=== PATIENT | male | born 1995 | race Caucasian/White ===

== ENCOUNTER 2019-05-20 16:18 | Emergency (ER) | payer BC, MEDICAID, SELFPAY ==
[2019-05-20 16:19] VITALS: BP 153/78; PULSE 87; RESP 16; TEMP 37.2; O2SAT 98; BMI 29.0
--- NOTE | 2019-05-20 17:13 | EKG12_ITS ---
Test Reason : Blood Pressure : / mmHG Vent. Rate : 083 BPM Atrial Rate : 083 BPM P-R Int : 154 ms QRS Dur : 094 ms QT Int : 366 ms P-R-T Axes : 073 072 036 degrees QTc Int : 430 ms Normal sinus rhythm Normal ECG Confirmed by ASAF MELVIN MD ([id number]), image editor SHANELL AVINA ([id number]) on 05/23/2019 8:31:32 AM Referred By: SHERRIE Confirmed By:ASAF MELVIN MD
--- NOTE | 2019-05-20 17:48 | CT_ITS ---
STUDY: CT BRAIN WITHOUT CONTRAST REASON FOR EXAM: Male, 24 years old. ? SEIZURE, PT WENT STIFF AND FELL TO GROUND RADIATION DOSAGE (If Supplied By Facility): CTDIvol = ( 44.99 ) mGy, DLP = ( 745.49 ) mGycm TECHNIQUE: Transaxial CT imaging of the brain was performed without administration of intravenous contrast material. Individualized dose optimization techniques were used for this CT. COMPARISON: No relevant priors. FINDINGS: Normal soft tissue structures. Normal calvarium. Normal size ventricles and extra-axial spaces for the patient''s age. Normal white matter tracts of the cerebral hemispheres. Normal basal ganglia and thalami. Normal brainstem. Normal cerebellum. There is no intracranial hemorrhage. There are no findings of an acute ischemic infarction. Normal visualized paranasal sinuses. CT/Brain/Head without Contrast IMPRESSION: Normal unenhanced CT scan of the brain. Electronically Signed: Nader Mc MD (Brooks) at 18:24 EST , Service support ,
--- NOTE | 2019-05-20 17:48 | RAD_ITS ---
STUDY: X-RAY CHEST REASON FOR EXAM: Male, 24 years old. PT ARRIVES TO ED WITH CONCERNS WITH SEIZURES. INCIDENT LASTED 15 SEC. NO LOSS OF BOWEL OR BLADDER CONTROL -- POSTERIOR LEFT BACK PAIN RADIATES INTO LEFT SHOULDER AND DOWN ARM TECHNIQUE: PA and lateral views of the chest. COMPARISON: None. FINDINGS: The lungs are clear and expanded. There is no demonstrated pleural abnormality. Normal size heart. Normal mediastinum and pat. Normal visualized pulmonary arteries. Normal visualized aortic arch and descending thoracic aorta. There is mild dextroscoliosis. Normal visualized ribs, clavicles, and shoulders. There is no demonstrated abnormality of the visualized soft tissue structures of the upper abdomen. RAD/Chest PA and Lateral IMPRESSION: Nonacute x-ray examination of the chest. Electronically Signed: Nader Mc MD (Brooks) at 18:32 EST , Service support ,
--- NOTE | 2019-05-20 17:49 | ED.VIS.GEN ---
History of Present Illness Chief Complaint: Seizure Informant: Patient, Family Onset: Today Maximum Severity: Mild Narrative: The patient presents with family after he had an episode where he seemed to become stiff and did not respond to girlfriend for about 10 seconds. The patient has no past history no past illnesses no medications he has been feeling well health is been good he indicates is been under significant stress related to financial issues he had normal health today was able to go about normal daily activities when out for meal with family came back with sitting on the couch talking to girlfriend about financial things other things when she reports he became very stiff for about 10 seconds did not seem to talk to her he had no incontinence no generalized seizure activity, then he by himself got off the couch and sat on the floor complained to her that he did not feel well and he was brought to the hospital He had no incontinence no tongue biting, he has no history of seizure or [employer] disorder cardiovascular disease or general medical conditions of any kind he does not use drugs he occasionally smokes indicates he and the girlfriend are both unemployed Past Medical History - Allergies and Home Meds Allergies/Adverse Reactions: Allergies No Known Allergies Allergy (Verified 05/20/19 16:22) Primary Care Physician: Barbra Romreo [Primary Care Provider] - Past Medical History: None Review of Systems General: Denies: Chills, Fever, Sweats Eyes: Denies: Visual changes - bilaterally, Diplopia ENT: Denies: Rhinorrhea, Sore throat Cardiovascular: Denies: Chest pain, Palpitations Respiratory: Denies: Dyspnea, Cough, Dyspnea on exertion Gastrointestinal: Denies: Abdominal pain, Nausea, Vomiting, Diarrhea, Melena, Hematochezia Genitourinary: Denies: Dysuria, Hematuria, Frequency Musculoskeletal: Denies: Back pain, Extremity Pain Skin: Denies: Rash, Wounds Neurological: Denies: Headache, Weakness, Numbness Physical Exam Vital Signs/Narrative: Vital Signs Temp Pulse Resp BP Pulse Ox 05/20/19 16:19 98.9 F 87 16 153/78 H 98 General: Well nourished, Well developed, No Acute Distress Head: Normocephalic, Atraumatic Eyes: Perrl, EOMI ENT: Moist mucous membranes, No rhinorrhea Neck: Supple, Nontender Cardiovascular: Regular rate, Regular rhythm, No murmurs Respiratory: No distress, CTA bilaterally, Chest nontender Abdomen: Soft, Nontender, Nondistended, Normal bowel sounds Back: Nontender, Normal Inspection Extremities: Nontender, No edema Skin: Normal color, No rash Neurological: Alert, Oriented x3, Cranial nerves II-XII grossly intact, Normal Strength, Normal Sensation Psychological: Normal affect, Normal Mood Diagnostic/Tx/Re-eval - Medical Decision Making His vital signs his general medical exam neurologic exam unremarkable his NIH is 0 his EKG shows a sinus rhythm rate of about 80 no acute injury pattern intervals are normal Long conversation with him and the girlfriend the girlfriend also indicates the patient basically has not slept for months he tosses and turns constantly she does not believe he sleeps more than a few hours a night and that he is under some stress related to social and financial issues, there is no suicidal homicidal ideation there was no definite seizure activity that she witnessed today just a sense of stiffness for 10 seconds Given all the above screening labs CT Patient's ED evaluation with labs head CT chest x-ray are all generally unremarkable, EKG showed a sinus rhythm no acute injury pattern intervals within normal range, patient is understanding of all the above understands exact etiology is unclear at this time he is comfortable as his girlfriend was discharged home, be started on hydroxyzine to help him sleep at bedtime follow-up with outpatient providers and return for change in symptoms Home stable Impression final stiffness episode etiology unclear, history of situational stress ED Disposition - Plan for ED Patient: Diagnosis: Muscle jerking Instructions: WEAKNESS, Unk Cause, Insomnia Prescriptions: Hydroxyzine HCl 25 mg PO QHS PRN PRN #10 tab PRN Reason: Anxiety Prescription Printed Referrals: Barbra Romero [Primary Care Provider] -
[2019-05-20 18:25] LABS: Anion Gap 5 (5-15); BUN 16 mg/dL (7-18); BUN/Creat Ratio 17.3 RATIO (10-20); Calcium,Total 8.9 mg/dL (8.5-10.1); Chloride 104 mmol/L (98-107); Creatinine, Serum 0.93 mg/dL (0.70-1.30); EST Glomerular Filtration Rate 108 mL/min (>60); Est Glom Filt Rate - Afr Amer 131 mL/min (>60); Glucose 101 mg/dL (74-106); Potassium 4.3 mmol/L (3.5-5.1); Sodium Level 139 mmol/L (136-145)
[2019-05-20 18:27] LABS: Absolute Lymphocyte Count 2.39 X10^3/uL (0.83-4.51); Absolute Neutrophil Count 4.1 X10^3/uL (2.0-7.7); Basophil# 0.04 X10^3/uL; Basophil% 0.5 % (0-1); Eosinophil# 0.18 X10^3/uL; Eosinophils% 2.3 % (0-5); Hematocrit 43.4 % (40-54); Hemoglobin 14.8 g/dL (13.0-16.5); Lymphocyte # 2.39 X10^3/ul (4.0); Lymphocyte % 31.1 % (19-41); Mean Corp Hgb Conc 34.1 g/dL (32-36); Mean Corpuscular Hgb 29.9 pg (27.0-32.0); Mean Corpuscular Volume 87.7 fL (80-94); Mean Platelet Vol. 9.8 fl (6.2-12.0); Monocyte# 0.95 X10^3/uL; Monocyte% 12.4 % (0-10); NRBC Flagged by Analyzer 0 % (0-5); Neutrophil # 4.06 X10^3/uL (2.7-7.7); Neutrophil % 52.9 % (47-70); Platelet Count 288 K/mm3 (150-450); RBC Distribution Width CV 12.9 % (11.6-14.6); RBC Distribution Width SD 41.1 fl (35.1-43.9); Red Blood Count 4.95 M/mm3 (4.6-6.2); White Blood Count 7.7 K/mm3 (4.4-11.0)
[2019-05-20 18:42] VITALS: O2SAT 98
[2019-05-20] MEDS: 0.9% Normal Saline 1,000 ML 999 ML IV (18:42)
[2019-05-20 18:55] LABS: Color, Urine Yellow (Yellow); Glucose, Dipstick Normal (Normal); Ketone-Dipstick Negative (Negative); Leukocyte Esterase-Dipstick Negative /ul (Negative); Mucous, Urine 0 SEEN /hpf (<or=2+); Nitrite-Dipstick Negative (Negative); Occult Blood-Urine Negative /ul (Negative); Protein-Dipstick Negative (Negative); Red Blood Cells-Urine 0 SEEN /hpf (0-5); Squamous Epithelial Cells - UA 0 SEEN /hpf (0-5); Urine Bilirubin Dipstick Negative (Negative); Urine Clarity Clear (Clear); Urine Urobilinogen Normal (Normal)
[2019-05-20 19:04] LABS: Bacteria RARE /hpf (None Seen); White Blood Cells 0-5 SEEN /hpf (0-5)
[2019-05-20 19:18] LABS: International Normalized Ratio 1.1; Prothrombin Time (Protime)PT. 14.3 SECONDS (11.7-14.9)
[2019-05-20 19:19] LABS: Partial Thromboplast Time 41.1 Seconds (24.1-36.2)
[2019-05-20 19:54] VITALS: BP 119/67; PULSE 82; RESP 16; O2SAT 98
== END 2019-05-20 20:00 | disposition home or self-care (01) ==
PROVIDERS: Emergency Provider Emergency Medicine; PCP Nurse Practitioner
DX: R29.898 Other symptoms and signs involving the musculoskeletal system (principal); F43.0 Acute stress reaction; Z72.0 Tobacco use
CPT/HCPCS: 70450; 71046; 80048; 81001; 84484; 85025; 85610; 85730; 93005; 96360; 99284; J7030; A4216

== ENCOUNTER → 2019-11-20 17:56 | Outpatient (CLI) | payer BC, MEDICAID, SELFPAY | DX: R19.7 Diarrhea, unspecified (principal); Z20.828 Contact with and (suspected) exposure to other viral communicable diseases | CPT/HCPCS: 87635; 94799; C9803; U0003 ==

== ENCOUNTER 2020-01-01 14:38 | Emergency (ER) | payer OTHER, MEDICAID, SELFPAY ==
[2020-01-01 14:39] VITALS: BP 146/62; PULSE 75; PULSE 80; RESP 17; RESP 18; TEMP 36.3; O2SAT 100; O2SAT 99; BMI 41.1
--- NOTE | 2020-01-01 14:49 | RAD_ITS ---
STUDY: X-RAY - RIGHT FOOT CLINICAL: Male, 24 years old. PT REPORTS INJURY TO RIGHT FOOT LAST EVENING with piece of equipment at work. TECHNIQUE: 3 view(s) of the foot. COMPARISON: None. FINDINGS: Normal talus, calcaneus, and tarsal bones. Normal visualized subtalar, talonavicular, calcaneocuboid, tarsal and tarsometatarsal articulations. Normal metatarsi. Normal metatarsophalangeal joint of the great toe. Normal tibial and fibular sesamoid bones. Normal interphalangeal joint of the great toe. Normal phalanges of the great toe. Normal second through fifth metatarsophalangeal joints. Normal interphalangeal joints and phalanges of the lesser toes. Mild dorsal soft tissue swelling. RAD/Foot min 3 Views IMPRESSION: Mild dorsal soft tissue swelling. Electronically Signed: Mark Omer, at 15:41 EDT , Service support ,
--- NOTE | 2020-01-01 15:01 | ED.DCSUM_ITS ---
History of Present Illness Chief Complaint: Lower Extremity Injury Narrative: Patient presents with right foot crush injury that happened last night. He is complaining of right dorsal tenderness. He has difficulty walking secondary to pain. No ankle pain no knee pain no other injuries. Past Medical History - Allergies and Home Meds Allergies/Adverse Reactions: Allergies No Known Allergies Allergy (Verified 01/01/20 14:38) Primary Care Physician: [facility] Jaz Davis [Primary Care Provider] - Past Medical History: None Smoking Status: Current some day smoker Review of Systems Musculoskeletal: Reports: Extremity Pain Skin: Denies: Abscess, Abrasions Neurological: Denies: Parasthesia, Numbness Hematologic: Denies: Easy bruising, Easy bleeding Physical Exam Vital Signs/Narrative: Vital Signs Temp Pulse Resp BP Pulse Ox 01/01/20 14:39 97.4 F L 80 17 146/62 H 99 General: Well nourished, Well developed Cardiovascular: Regular rate Respiratory: No distress Back: Nontender Extremities: - - There is swelling and bruising over the dorsum of the right foot. There is tenderness over the third fourth and fifth mid metatarsal region. There is no ankle pain no calcaneus tenderness. Skin: Normal color Neurological: Normal Strength, Normal Sensation Diagnostic/Tx/Re-eval Foot x-ray interpreted by emergency doctor shows normal alignment. No fracture is seen. There is soft tissue swelling present otherwise normal x-ray. - Medical Decision Making She has a normal foot x-ray. I will order postop shoe and discharged in stable condition ED Disposition - Plan for ED Patient: Disposition: Home or Assisted Living Diagnosis: Foot contusion Instructions: ED FOOT CONTUSION Prescriptions: Naproxen [Naprosyn] 500 mg PO BID PRN #20 tab Transmission Status: P[facility] to [id number]
[2020-01-01 16:01] VITALS: PULSE 76; RESP 17; O2SAT 98
== END 2020-01-01 16:02 | disposition home or self-care (01) ==
PROVIDERS: Emergency Provider Emergency Medicine
DX: S90.31XA Contusion of right foot, initial encounter (principal); X58.XXXA Exposure to other specified factors, initial encounter; Y93.9 Activity, unspecified; Y92.9 Unspecified place or not applicable; F17.200 Nicotine dependence, unspecified, uncomplicated
CPT/HCPCS: 73630; 99283

== ENCOUNTER 2020-10-20 17:02 | Emergency (ER) | payer BC, MEDICAID, SELFPAY ==
[2020-05-02 13:34] VITALS: BMI 39.8
[2020-10-20 17:03] VITALS: BP 134/81; PULSE 78; RESP 15; TEMP 36.2; O2SAT 97; BMI 38.9
--- NOTE | 2020-10-20 17:41 | ED.VIS.CHEST ---
HPI History of Present Illness Chief Complaint: Chest Other Informant: patient Narrative Narrative: Patient is a 25-year-old previously healthy male who presents to the emergency department for right-sided chest wall pain. He states that this started 2 hours ago. He has never had this before. He does not recall any injury, falls or inciting event. He currently rates as a 7 out of 10. Pushing on the area makes it worse. He denies any associated shortness of breath. No radiation of the pain. No abdominal pain. No nausea/vomiting. He has not been coughing or having fever/chills. He has not tried anything for this. He denies a smoking history. PFSH PFSH Home Medications NK 10/20/20 [History Last Taken Unknown] Allergy/AdvReac Type Severity Reaction Status Date / Time No Known Allergies Allergy Verified 05/02/20 13:36 Social History Smoking Status: Never smoker ROS ROS ED Constitutional Constitutional ED: Denies chills or fever(s) Eyes Eyes: Denies change in vision ENT ENT ED: Denies epistaxis or rhinorrhea Cardiovascular Cardiovascular: Reports chest pain; Denies palpitations Respiratory/Chest Respiratory/Chest: Denies cough, dyspnea or dyspnea on exertion Gastrointestinal Gastrointestinal: Denies abdominal pain, diarrhea, nausea or vomiting Genitourinary Genitourinary ED: Denies dysuria, hematuria or urinary frequency Musculoskeletal Musculoskeletal: Denies back pain or neck pain Integumentary Denies rash Neurologic Neurologic: Denies dizziness, headache(s) or weakness EXAM Physical Exam Const Vital Signs: 10/20/20 17:03 10/20/20 17:10 Temperature 97.1 F L Temperature Source Temporal Pulse Rate 78 Respiratory Rate 15 Respiratory Pattern Normal Blood Pressure 134/81 H Blood Pressure Mean 98 Pulse Ox 97 Oxygen Delivery Method Room Air Positive well nourished and well developed General Appearance ED: well developed and NAD HEENT Reports normocephalic, head/scalp atraumatic and moist mucous membranes Eyes PERRL and EOMs intact bilaterally Neck supple Chest Wall inspection of chest normal Chest Narrative: Tenderness over right lateral ribs. No overlying skin changes. Resp normal respiratory effort and clear to auscultation bilaterally Auscultation: Negative for rales, rhonchi or wheezes Cardio regular rate, regular rhythm and no murmurs GI normal to inspection, nondistended, normoactive bowel sounds and non-tender Palpation: soft; Negative for guarding or rebound tenderness present Back/Spine no CVA tenderness Extremity normal to inspection General Extremety ED: Negative for edema or tenderness General Extremity: Negative for edema Neuro no sensory deficits noted Sensorium / Orientation: alert Motor Exam: strength 5/5 throughout Psych mental status grossly normal Skin no rashes or lesions noted MDM MDM MDM Narrative Medical decision making narrative: Patient presents the ED for nontraumatic right-sided rib pain. This is reproducible on exam. He has point tenderness. Given the fact this is only been going on for 2 hours. He has normal vital signs and is not hypoxic. No shortness of breath. Do not feel significant work-up is required at this time. Did discuss x-ray but without any trauma I have very low concern for rib fracture. Recommend symptomatic treatment. It is most likely rib strain. He is to take anti-inflammatories, Tylenol and use ice over the area. He is to follow-up with his PCP if this does not resolve. If he does any significant worsening chest pain, shortness of breath he needs to return back to the emergency department. This was all reviewed with him. He understands and is agreeable with plan. Discharged home in stable condition. All questions were answered. Discharge Plan Triage Chief Complaint: Chest Other ED Provider: Kvng Evans Dx/Rx/DC Orders Instructions: ED Chest Wall Pain, Costochondritis Prescriptions: No Action NK RF: 0 Primary Care Provider: Jaz Goldman Referrals: [facility] Jaz Davis [Primary Care Provider] - 3-5 Days if not improving Disposition Disposition: Home, Self Care Discharge Date/Time: 10/20/20 17:53
[2020-10-20 17:52] VITALS: RESP 18
== END 2020-10-20 17:53 | disposition home or self-care (01) ==
LOC: ED 17:47
PROVIDERS: Emergency Provider Emergency Medicine
DX: M94.0 Chondrocostal junction syndrome [Tietze] (principal); R07.89 Other chest pain
CPT/HCPCS: 99282

== ENCOUNTER 2023-02-02 14:18 | Emergency (ER) | payer MEDICAID, SELFPAY ==
[2023-02-02 14:18] VITALS: BP 132/70; PULSE 89; RESP 16; TEMP 36.6; O2SAT 98; BMI 36.0
--- NOTE | 2023-02-02 14:55 | EKG12_ITS ---
Test Reason : CP Blood Pressure : / mmHG Vent. Rate : 084 BPM Atrial Rate : 084 BPM P-R Int : 154 ms QRS Dur : 090 ms QT Int : 364 ms P-R-T Axes : 044 060 018 degrees QTc Int : 430 ms Normal sinus rhythm Normal ECG Confirmed by ASAF MELVIN MD ([id number]), dictionary editor SHERICE BOLDEN ([id number]) on 02/04/2023 2:03:38 PM Referred By: KEVIN Confirmed By:ASAF MELVIN MD
--- NOTE | 2023-02-02 15:05 | RAD_ITS ---
INDICATION: chest pain EXAMINATION/TECHNIQUE: X-RAY - portable upright AP chest x-ray COMPARISON: 05/20/2019 FINDINGS: LINES/DEVICES: None. LUNGS: Low lung volumes without consolidation, vascular congestion or pleural effusion. Mild bibasilar subsegmental atelectasis. MEDIASTINUM AND CARDIOVASCULAR STRUCTURES: Cardiac silhouette within normal limits. BONES AND SOFT TISSUES: No acute changes. RAD/Chest 1 View (Portable) IMPRESSION: No radiographic evidence of acute cardiopulmonary disease. Electronically Signed: Ramez Mendosa MD at 15:25 EDT ,
--- NOTE | 2023-02-02 15:16 | EDS_ITS ---
HPI History of Present Illness Chief Complaint: Chest Pain Informant: patient Onset/Context/Timing Onset: Yesterday Activity at onset: gradual Timing: Waxes and wanes Quality: Positive for Sharp Location: Left Chest Narrative Narrative: Patient presents with sharp pain to the left lower chest that started yesterday. He states symptoms started after he drank coffee and Mountain Dew and he thought was just because he drank too much caffeine. He will intermittently feel his heart is racing. He states when he takes a big deep breath and the pain seems to be worse, however pain is not reproducible with palpation over his chest. He does not particularly feel short of breath. He denies any recent change in activity. [facility] Medical History Asthma Home Medications rivaroxaban 15 mg (42)-20 mg (9) tablets in a starter pack (Xarelto DVT-PE Treatment 30-Day Starter) See Rx Instructions PO .COMPLEX #51 tabs 02/02/23 [Rx Last Taken Unknown] Allergy/AdvReac Type Severity Reaction Status Date / Time No Known Allergies Allergy Verified 02/02/23 14:20 Social History Smoking Status: Current every day smoker tobacco type: cigarettes ROS ROS ED Constitutional Constitutional ED: Denies chills or fever(s) Eyes Eyes: Denies change in vision or discharge from eye(s) ENT ENT ED: Denies discharge from eye(s), rhinorrhea or sore throat Cardiovascular Cardiovascular: Reports chest pain and palpitations Respiratory/Chest Respiratory/Chest: Denies cough or dyspnea Gastrointestinal Gastrointestinal: Denies abdominal pain, nausea or vomiting Musculoskeletal Musculoskeletal: Denies back pain or extremity pain Integumentary Denies Abrasions or rash Neurologic Neurologic: Denies headache(s) or weakness Psychiatric Psychiatric: Denies anxiety or depression Allergic/Immunologic Allergic/Immunologic ED: Denies lip swelling or urticaria EXAM Physical Exam Const Vital Signs: 02/02/23 14:18 02/02/23 14:21 02/02/23 14:55 Temperature 97.8 F Temperature Source Temporal Pulse Rate 89 Respiratory Rate 16 Respiratory Effort Normal Non-Labored Blood Pressure 132/70 H Blood Pressure Mean 90 Pulse Ox 98 Oxygen Delivery Method Room Air Room Air 02/02/23 15:18 Temperature Temperature Source Pulse Rate 87 Respiratory Rate 15 Respiratory Effort Blood Pressure 131/65 H Blood Pressure Mean 87 Pulse Ox 98 Oxygen Delivery Method Room Air Positive well nourished and well developed General Appearance ED: well developed HEENT Reports normocephalic and head/scalp atraumatic Eyes PERRL and EOMs intact bilaterally Neck supple Chest Wall inspection of chest normal and palpation of chest normal Resp normal respiratory effort and clear to auscultation bilaterally Cardio regular rate and regular rhythm GI soft to palpation GI Narrative: Mild epigastric tenderness palpation. No guarding or rebound. Extremity normal to inspection Neuro oriented x3 and no sensory deficits noted Sensorium / Orientation: alert Motor Exam: strength 5/5 throughout Psych mental status grossly normal Skin no rashes or lesions noted MDM MDM MDM Narrative Medical decision making narrative: Prehospital EKG was reviewed and revealed no evidence of acute ischemia. Patient was given aspirin and 1 nitro with EMS. This did not change his pain. Patient placed on vehicle monitor technician. EKG obtained to evaluate for cardiac arrhythmia/ischemia. Chest x-ray obtained to evaluate for acute lung pathology, cardiac size, or mediastinal abnormality. Labwork obtained to evaluate for leukocytosis, anemia, and electrolyte derangement. Patient given Toradol and Protonix for pain. History & Record Review Discussion w/independent historian: Patient Additional record(s) reviewed:: Prior ED visit Lab Data Attestation: I reviewed the patient's lab results. Labs: Laboratory Results - last 24 hr 02/02/23 15:21 WBC 12.4 H RBC 4.76 Hgb 14.4 Hct 43.1 MCV 90.5 MCH 30.3 MCHC 33.4 RDW Std Deviation 41.8 RDW Coeff of [place]stance 12.7 Plt Count 267 MPV 9.5 Immature Gran % (Auto) 0.400 Neut % (Auto) 69.2 Lymph % (Auto) 15.1 L [place] % (Auto) 10.2 H Eos % (Auto) 4.4 Baso % (Auto) 0.7 Absolute Neuts (auto) 8.6 H Absolute Lymphs (auto) 1.87 Nucleated RBC % 0 D-Dimer Quant (PE/DVT) 1.27 H* Sodium 139 Potassium 4.0 Chloride 108 H Carbon Dioxide 27.0 Anion Gap 4 L BUN 15 Creatinine 0.98 Estim Creat Clear Calc 117.94 Est GFR (MDRD) Af Amer 119 Est GFR (MDRD) Non-Af 98 BUN/Creatinine Ratio 15.3 Glucose 99 Calcium 8.8 Troponin I High Sens 3 Radiography Chest X-Ray - ED: 1 View, Read by ED Physician, Normal, Heart, Lungs and Mediastinum Diagnostic Testing: Clinical Impression(s) from Imaging Studies Chest X-Ray 02/02/23 15:05 IMPRESSION: No radiographic evidence of acute cardiopulmonary disease. Electronically Signed: Ramez Mendosa MD at 15:25 EDT , Chest CTA 02/02/23 16:15 IMPRESSION: Pulmonary emboli in segmental and subsegmental branches to the right upper and bilateral lower lobes. Left lower lobe infiltrate, infectious versus developing pulmonary infarction. Electronically Signed: Ramez Mendosa MD at 17:09 EDT , EKG Initial EKG: Attestation: I personally reviewed and interpreted this EKG as follows: Interpretation: Sinus Rhythm (Sinus at 84 with no acute ischemia.) Treatment and Re-Evaluation :: CBC was white count of 12.4 with normal differential. Hemoglobin normal at 14.4. D-dimer elevated at 1.27. Troponin is normal at 3. Chemistry studies unremarkable with normal renal function. Portable chest x-ray per my interpretation reveals no acute findings. Radiology interpretation is reviewed and agrees. EKG is sinus at 84 with no acute ischemia. Given the patient's elevated D-dimer he was sent for a CTA of the chest. Patient has evidence of bilateral segmental and subsegmental emboli in the right upper and bilateral lower lobes. There is a left lower lobe infiltrate which may be infectious versus developing pulmonary infarction. This is the area of the patient's pain. He does not have any infectious symptoms. I do believe this is more likely to be infarct. Patient's vital signs have been stable. His O2 sat has remained over 97%. I will discharge him with a prescription for Xarelto and give him first dose here. He will [facility]-up with [facility] for close follow-up. Discharge Plan Triage Chief Complaint: Chest Pain ED Provider: Polly Stewart Dx/Rx/DC Orders Clinical Impression: Pulmonary emboli Instructions: Pulmonary Embolism Prescriptions: New Xarelto DVT-PE Treat 30d Start 15 mg (42)- 20 mg (9) tablets,dose pack See Rx Instructions .ROUTE .COMPLEX Qty: 51 0RF Rx Instructions: take one-15 mg tablet twice daily for 21 days, then one-20 mg tablet once daily; must take with meal/food Primary Care Provider: [facility] Jaz Davis Referrals: [facility] [Primary Care Provider] - 1 Week Disposition Disposition: Home, Self Care
[2023-02-02 15:18] VITALS: BP 131/65; PULSE 87; RESP 15; O2SAT 98
[2023-02-02] MEDS: Pantoprazole Sodium 40 MG in 0.9% Normal Saline (100mL MB+) 100 ML 330 MG IV (15:19)
[2023-02-02] MEDS: Ketorolac 30 MG/ML Syringe IV (15:20)
[2023-02-02 15:27] LABS: Absolute Lymphocyte Count 1.87 X10^3/uL (0.83-4.51); Absolute Neutrophil Count 8.6 X10^3/uL (2.0-7.7); Basophil# 0.09 X10^3/uL; Basophil% 0.7 % (0-1); Eosinophil# 0.55 X10^3/uL; Eosinophils% 4.4 % (0-5); Hematocrit 43.1 % (40-54); Hemoglobin 14.4 g/dL (13.0-16.5); Lymphocyte # 1.87 X10^3/ul (0.83-4.51); Lymphocyte % 15.1 % (19-41); Mean Corp Hgb Conc 33.4 g/dL (32-36); Mean Corpuscular Hgb 30.3 pg (27.0-32.0); Mean Corpuscular Volume 90.5 fL (80-94); Mean Platelet Vol. 9.5 fl (6.2-12.0); Monocyte# 1.26 X10^3/uL; Monocyte% 10.2 % (0-10); NRBC Flagged by Analyzer 0 % (0-5); Neutrophil # 8.57 X10^3/uL (2.7-7.7); Neutrophil % 69.2 % (47-70); Platelet Count 267 K/mm3 (150-450); RBC Distribution Width CV 12.7 % (11.6-14.6); RBC Distribution Width SD 41.8 fl (35.1-43.9); Red Blood Count 4.76 M/mm3 (4.6-6.2); White Blood Count 12.4 K/mm3 (4.4-11.0)
[2023-02-02 16:00] LABS: D-Dimer Quantitative (DVT/PE) 1.27 FEU/ug/m (0.27-0.49)
[2023-02-02 16:06] LABS: Anion Gap 4 (5-15); BUN 15 mg/dL (7-18); BUN/Creat Ratio 15.3 RATIO (10-20); Calcium,Total 8.8 mg/dL (8.5-10.1); Chloride 108 mmol/L (98-107); Creatinine, Serum 0.98 mg/dL (0.70-1.30); EST Glomerular Filtration Rate 98 mL/min (>60); Est Glom Filt Rate - Afr Amer 119 mL/min (>60); Estimated Creatinine Clearance 117.94 ml/min; Glucose 99 mg/dL (74-106); Sodium Level 139 mmol/L (136-145); Troponin-I HS 3 pg/mL (3.0-78.0)
--- NOTE | 2023-02-02 16:15 | CT_ITS ---
We are attempting to reach an attending provider to discuss findings. An addendum with communication details will be sent when the communication is complete. STUDY: CTA CHEST REASON FOR EXAM: Male, 28 years old. Chest pain, elevated d-dimer RADIATION DOSAGE (If Supplied By Facility): CTDIvol = ( 14.81 ) mGy, DLP = ( 1118.11 ) mGycm TECHNIQUE: The examination was performed with the intravenous administration of 100mL Isovue-370. Post-processing of the angiographic images was performed, with multiplanar reformation and 3D reconstruction. Individualized dose optimization techniques were used for this CT. COMPARISON: None. FINDINGS: Filling defects and distal segmental and subsegmental branches to the bilateral lower lobes, right upper lobe. Normal thoracic aorta and visualized great vessels. There is no demonstrated aortic dissection. Normal heart and pericardium. Normal mediastinum. Normal hilar regions. Patchy left lower lobe infiltrate. Small left pleural effusion. Normal chest wall structures. Normal osseous structures. No acute findings in the upper abdomen. CT/CTA Chest W/WO Contrast IMPRESSION: Pulmonary emboli in segmental and subsegmental branches to the right upper and bilateral lower lobes. Left lower lobe infiltrate, infectious versus developing pulmonary infarction. Electronically Signed: Ramez Mendosa MD at 17:09 EDT ,
[2023-02-02 17:00] VITALS: BP 112/85; PULSE 81; RESP 14; O2SAT 98
[2023-02-02] MEDS: Rivaroxaban 15 MG Tablet PO (17:29)
[2023-02-02 17:32] VITALS: BP 121/78; PULSE 81; RESP 16; O2SAT 98
[2023-02-02 17:33] VITALS: BP 112/85; PULSE 81; RESP 14; O2SAT 98
== END 2023-02-02 17:36 | disposition home or self-care (01) ==
PROVIDERS: Emergency Provider Emergency Medicine; Visit Provider Emergency Medicine
DX: I26.99 Other pulmonary embolism without acute cor pulmonale (principal); I26.94 Multiple subsegmental thrombotic pulmonary emboli without acute cor pulmonale; F17.210 Nicotine dependence, cigarettes, uncomplicated
CPT/HCPCS: 71045; 71275; 80048; 84484; 85025; 85379; 93005; 96365; 96375; 99285; J7030; Q9967; A4216

== ENCOUNTER 2023-02-03 08:32 | Emergency (ER) | payer MEDICAID, SELFPAY ==
[2023-02-03 08:33] VITALS: BP 139/92; PULSE 108; RESP 28; TEMP 36.1; O2SAT 97; BMI 33.3
--- NOTE | 2023-02-03 08:51 | EKG12_ITS ---
Test Reason : Blood Pressure : / mmHG Vent. Rate : 096 BPM Atrial Rate : 096 BPM P-R Int : 150 ms QRS Dur : 090 ms QT Int : 348 ms P-R-T Axes : 033 064 035 degrees QTc Int : 439 ms Normal sinus rhythm Normal ECG Confirmed by GARIMA DELUCA, NIDA ([id number]), photography editor SHERICE BOLDEN ([id number]) on 02/05/2023 7:05:42 AM Referred By: Confirmed By:ELIZABET PAINTING MD
--- NOTE | 2023-02-03 08:53 | ED.VIS.CHEST ---
HPI History of Present Illness Chief Complaint: Chest Pain Informant: patient Narrative Narrative: Presents with left and chest pain. Patient was seen yesterday for this. He was diagnosed with pulmonary embolus. He was started on Xarelto which he is taking. He states if he does breeze normally and does normal activity his chest does not hurt really. But if he gets upset or angry or is breathing real deep he is getting pain in the left chest that seems a little bit more than yesterday. He thought the pain might go away on the medicine. He is not coughing. He is not actually short of breath. No hemoptysis. No signs of bleeding anywhere else. He has not been lightheaded or syncopal. He was on no medicines prior to this diagnosis. He denies any recent casting, splinting, being bedbound, hormone therapy travel surgery immobilization personal or family history of DVT or PE. [facility] Medical History Asthma Home Medications rivaroxaban 15 mg (42)-20 mg (9) tablets in a starter pack (Xarelto DVT-PE Treatment 30-Day Starter) See Rx Instructions PO .COMPLEX #51 tabs 02/02/23 [Rx Last Taken Unknown] oxycodone-acetaminophen 5 mg-325 mg tablet 1 tab PO Q6H PRN PRN Pain 3 days #12 TABLETS 02/03/23 [Rx Last Taken Unknown] Allergy/AdvReac Type Severity Reaction Status Date / Time No Known Allergies Allergy Verified 02/03/23 08:37 Social History Smoking Status: Current some day smoker tobacco type: cigarettes ROS ROS ED ROS Narrative A complete review of systems was performed and is negative except as documented in the history of present illness. Some specific details below. Constitutional: No recent fevers or chills. EYE: No discharge, visual complaints, or pain. ENT: No difficulty swallowing. No swelling. No pain. No reflux symptoms. No GERD. CV: See history of present illness. Respiratory: See history of present illness. GI: No abdominal pain. No nausea vomiting diarrhea. No blood in stool. : No hematuria. Musculoskeletal: No recent trauma. No pains. No swelling. Skin: No rash. Nondiaphoretic. Neuro: No weakness or numbness. Endocrine: No polyuria or polydipsia. EXAM Physical Exam Narrative Exam Narrative: CONSTITUTIONAL: Patient is nontoxic in appearance. The patient looks comfortable. Work of breathing looks normal. He carries on a normal conversation with me. HEENT: No notable trauma. Mucous membranes moist. No indication of pain with swallowing. Some of his symptoms did seem to be more after he drank some caffeine but he is not having GERD symptoms now. EYES: No conjunctival injection. No proptosis. NECK:No JVD. No stridor. CARDIOVASCULAR: Regular rate currently at about 90. Regular rhythm. No notable murmur. No JVD. RESPIRATORY: No respiratory distress. Breathing is unlabored. No wheezes. No rhonchi. No rales. He does have some pain in the left anterior chest wall when he takes a very deep breath. But he is not really tender there. No bruising. No subcu air. GASTROINTESTINAL: Not distended. Bowel sounds are normal. No tenderness. GENITOURINARY: No tenderness over the bladder. No CVA tenderness. MUSCULOSKELETAL: Atraumatic. No peripheral edema. No cord. No tenderness along the deep venous system. No asymmetry. No distended veins. NEUROLOGICAL: Patient is alert and appropriate. No focal deficit noted. SKIN: No noted rashes. No diaphoresis. PSYCHIATRIC: Patient is calm. Mood is appropriate. Const Vital Signs: 02/03/23 08:33 02/03/23 08:51 02/03/23 10:32 Temperature 97.0 F L Temperature Source Temporal Pulse Rate 108 H Respiratory Rate 28 H Blood Pressure 139/92 H 123/81 H Blood Pressure Mean 107 95 Pulse Ox 97 Oxygen Delivery Method Room Air Room Air MDM MDM MDM Narrative Medical decision making narrative: My independent interpretation of the patient's single view chest x-ray shows no marked abnormality. I see no effusion. No notable cardiomegaly on this film. Final reading is negative. Patient CBC shows normal white count. No anemia or thrombocytopenia. Patient's electrolytes are normal. Patient's lactic acid is normal at 0.5. I reviewed CT reading from yesterday. This did show suspected early pulmonary infarct in the left lower lobe which is where he has pain. I think he is getting pain from this. I do not think this requires repeat imaging. I get no clinical indication for an of cardiac dysfunction. We will walk him here in the department to make sure he does not desaturate. If not, he needs to stay on the Xarelto. I will get him something for pain though. We will walk him in the apartment to see how he does. Patient dropped his very low his saturation to 90%. But he had gone down and then back up while walking. He felt good doing this. I do not think this requires admission at this time. He has localized pain in an area where a pulmonary infarct was seen to be starting yesterday. He is comfortable. I will give him something for pain. We discussed reasons to return that include worsening dyspnea hemoptysis bleeding in any other areas or any other concerns. At this time I do not think we need to do a CTA of his chest repeated. Lab Data Attestation: I reviewed the patient's lab results. Labs: Laboratory Results - last 24 hr 02/03/23 02/03/23 08:40 09:01 WBC 11.4 H RBC 5.16 Hgb 15.7 Hct 46.2 MCV 89.5 MCH 30.4 MCHC 34.0 RDW Std Deviation 41.7 RDW Coeff of Constance 12.7 Plt Count 276 MPV 9.8 Immature Gran % (Auto) 0.200 Neut % (Auto) 68.5 Lymph % (Auto) 17.0 L Long % (Auto) 10.1 H Eos % (Auto) 3.7 Baso % (Auto) 0.5 Absolute Neuts (auto) 7.8 H Absolute Lymphs (auto) 1.94 Nucleated RBC % 0 Sodium 138 Potassium 3.7 Chloride 107 Carbon Dioxide 27.0 Anion Gap 4 L BUN 13 Creatinine 0.99 Estim Creat Clear Calc 127.79 Est GFR (MDRD) Af Amer 118 Est GFR (MDRD) Non-Af 98 BUN/Creatinine Ratio 13.2 Glucose 97 Lactic Acid 0.5 Calcium 8.9 Radiography Diagnostic Testing: Clinical Impression(s) from Imaging Studies Chest X-Ray 02/03/23 09:05 IMPRESSION: No radiographic evidence of acute cardiopulmonary disease. Electronically Signed: Xin Wise MD at 9:22 EDT , EKG Initial EKG: Comments: My independent interpretation of the patient's EKG done for chest pain shows sinus rhythm with a rate of 96. No ectopy. No acute ST elevation or depression. NV interval, QRS duration and QTc are all normal. No notable S1Q3T3. Discharge Plan Triage Chief Complaint: Chest Pain ED Provider: Sukhdeep Charles Dx/Rx/DC Orders Clinical Impression: Pulmonary infarction, Pulmonary emboli, Left-sided chest pain Instructions: Embolism Pulmonary Dc, ED Pleurisy Prescriptions: New oxycodone-acetaminophen [oxycodone-acetaminophen] 5-325 mg tablet 1 tab PO Q6H PRN PRN (Reason: Pain) 3 Days Qty: 12 0RF No Action Xarelto DVT-PE Treat 30d Start 15 mg (42)- 20 mg (9) tablets,dose pack See Rx Instructions .ROUTE .COMPLEX Qty: 51 0RF Rx Instructions: take one-15 mg tablet twice daily for 21 days, then one-20 mg tablet once daily; must take with meal/food Primary Care Provider: Care Physician,No [facility] Disposition Disposition: Home, Self Care
--- NOTE | 2023-02-03 09:05 | RAD_ITS ---
INDICATION: chest pain EXAMINATION/TECHNIQUE: X-RAY - XR Chest 1 View COMPARISON: February 02, 2023 FINDINGS: LINES/DEVICES: None. LUNGS: No new consolidation, edema or effusion. There is a stable left basilar vague opacity which is likely a confluence of shadows. No pneumothorax. MEDIASTINUM AND CARDIOVASCULAR STRUCTURES: Cardiac silhouette not enlarged. Central airways and mediastinal contour are unremarkable. BONES AND SOFT TISSUES: Unremarkable. RAD/Chest 1 View (Portable) IMPRESSION: No radiographic evidence of acute cardiopulmonary disease. Electronically Signed: Xin Wise MD at 9:22 EDT ,
[2023-02-03 09:06] LABS: Absolute Lymphocyte Count 1.94 X10^3/uL (0.83-4.51); Absolute Neutrophil Count 7.8 X10^3/uL (2.0-7.7); Basophil# 0.06 X10^3/uL; Basophil% 0.5 % (0-1); Eosinophil# 0.42 X10^3/uL; Eosinophils% 3.7 % (0-5); Hematocrit 46.2 % (40-54); Hemoglobin 15.7 g/dL (13.0-16.5); Lymphocyte # 1.94 X10^3/ul (0.83-4.51); Mean Corpuscular Hgb 30.4 pg (27.0-32.0); Mean Corpuscular Volume 89.5 fL (80-94); Mean Platelet Vol. 9.8 fl (6.2-12.0); Monocyte# 1.16 X10^3/uL; Monocyte% 10.1 % (0-10); NRBC Flagged by Analyzer 0 % (0-5); Neutrophil # 7.83 X10^3/uL (2.7-7.7); Neutrophil % 68.5 % (47-70); Platelet Count 276 K/mm3 (150-450); RBC Distribution Width CV 12.7 % (11.6-14.6); RBC Distribution Width SD 41.7 fl (35.1-43.9); Red Blood Count 5.16 M/mm3 (4.6-6.2); White Blood Count 11.4 K/mm3 (4.4-11.0)
[2023-02-03] MEDS: Ondansetron 4 MG/2 ML Vial IV (09:10)
[2023-02-03] MEDS: Morphine 4 MG/ML Syringe IV (09:11)
[2023-02-03] MEDS: 0.9% Normal Saline (500mL Bag) 500 ML 999 ML IV (09:11)
[2023-02-03 09:19] LABS: Anion Gap 4 (5-15); BUN 13 mg/dL (7-18); BUN/Creat Ratio 13.2 RATIO (10-20); Calcium,Total 8.9 mg/dL (8.5-10.1); Chloride 107 mmol/L (98-107); Creatinine, Serum 0.99 mg/dL (0.70-1.30); EST Glomerular Filtration Rate 98 mL/min (>60); Est Glom Filt Rate - Afr Amer 118 mL/min (>60); Estimated Creatinine Clearance 127.79 ml/min; Glucose 97 mg/dL (74-106); Potassium 3.7 mmol/L (3.5-5.1); Sodium Level 138 mmol/L (136-145)
[2023-02-03 09:38] LABS: Lactic Acid 0.5 mmol/L (0.4-1.9)
[2023-02-03 10:32] VITALS: BP 123/81
[2023-02-03 11:03] VITALS: O2SAT 96
[2023-02-03 11:20] VITALS: BP 118/79; PULSE 84; RESP 16; O2SAT 98
--- NOTE | 2023-02-03 11:38 | CM.ED ---
Social Work Referral Source: case find Referral Reason: no PCP/ resources SW met with patient and introduced herself and role as [facility] Web Page Developer. Patient lying on hospital bed and agreeable to speak with SW. SW inquired about patient's insurance and current PCP. Patient verified insurance and reports no current PCP. SW provided patient with a list of local PCPs in network with patient's insurance and accepting new patients. Patient was receptive towards list and inquired about transportation resources as he doesn't have a ride home. SW provided [employer] list as well transportation resource list. [facility] transportation unable to assist due to current schedule. SW contacted [employer] to arrange transportation, transport number [id number]. [employer] to contact [facility] ED with ETA once the ride has been assigned to a company tanker truck driver, could take up to 3 hours. SW informed patient of transportation arranged through patient's insurance, patient voiced understanding and confirms he has no other current options. Patient then inquired about housing resources explaining he is staying in his grandfather's basement but it is not a permanent solution. SW reviewed [facility] list and encouraged patient to contact [facility], [facility] or [employer] to discuss their housing programs. SW also informed patient of [facility] and encouraged the patient to contact them to inquire about bed availability. SW provided emotional support and explained going to could speed up the process for assistance as he isn't viewed as homeless while he has a place to stay. SW also provided list of shelters in other [facility]. Patient voiced understanding and reports his plan will be return to his grandfather's home and contact agencies to discuss options. Plan: [employer] company to contact [facility] ED with ETA to transport patient home, other transportation, housing resources and PCP list provided IMAN Reich
--- NOTE | 2023-02-03 12:18 | CM.ED ---
Social Work SW contacted [employer] for ETA update. Staff report they were still trying to locate a ambulance driver. This tag writer was on the phone for 30 minutes and the call was disconnected. SW met with patient outside of the ED to inform him of the conversation. Patient reports he also called and was told they were waiting on someone to accept this trip. Patient reports he plans to call some of the resources listed for housing options as he does not feel he can return to his grandfather's home. Patient requesting to speak with SW. SW met with patient with patient's grandfather on the phone. Patient explained patient's grandfather is living in the basement of his Aunt and Uncles home with their children and grandmother on the main level of the home. Patient explained the condition of the basement is negatively impacting patient's health and expressed concerns regarding returning to that house. SW provided emotional support and reviewed local housing resources. Per patient [facility] has no beds available until Wednesday. Patient's grandfather inquiring about patient's ability to be admitted to [facility] due to medical concerns. SW explained patient has to meet criteria to be admitted to [facility], however, if patient has more medical concerns and wants to be seen by a doctor he could go back to triage. Patient reports he does not feel that is necessary. Patient explained he needs to get to [facility] pharmacy and still needs a ride home although he wants to stay somewhere else. SW discussed [facility] house in [place]. SW unsure of criteria to stay at that house but patient does report previous substance use. SW provided phone number and address and encouraged him to call. SW also encouraged patient to go to [facility] and inquire about patient's prescriptions being filled as there seem to be multiple barriers to patient going to [facility] pharmacy. Patient receptive towards information and explained he plans to check with the pharmacy to discuss options as well as contact [facility] to inquire about housing options. SW contacted [facility], they are accepting no new intakes until the week of February 08, 2023. Rianna ANDERS, IMAN
== END 2023-02-03 11:21 | disposition home or self-care (01) ==
PROVIDERS: Emergency Provider Emergency Medicine; Visit Provider Emergency Medicine
DX: R07.89 Other chest pain (principal); I26.09 Other pulmonary embolism with acute cor pulmonale; I26.99 Other pulmonary embolism without acute cor pulmonale; F17.210 Nicotine dependence, cigarettes, uncomplicated
CPT/HCPCS: 71045; 80048; 83605; 85025; 93005; 96361; 96374; 96375; 99285; J7040; A4216; J2405